=== PATIENT | female | born 1980 | race Caucasian/White ===

== ENCOUNTER → 2017-03-24 | Outpatient (CLI) | payer BC ==
[~2017-03-24] MED LIST: OXYC-57 PO; PRENTAB26 PO
--- NOTE | 2017-03-24 15:10 | MAMMOGRAPHY REPORT ---
BILATERAL DIGITAL DIAGNOSTIC MAMMOGRAM TOMOSYNTHESIS WITH CAD AND TARGETED LEFT ULTRASOUND: 03/24/2017 CLINICAL HISTORY: The patient reports left axillary pain for approximately one month, which has since resolved. She denies any palpable lumps or other complaints. Her mother was diagnosed with breast cancer at age 37. TECHNIQUE: Breast tomosynthesis in addition to standard 2D mammography was performed. Current study was also evaluated with a Computer Aided Detection (CAD) system. Bilateral CC and MLO 2-D and tomosy nthesis images were obtained. COMPARISON: No prior exams were available for comparison. BREAST COMPOSITION: The tissue of both breasts is heterogeneously dense, which may obscure small mas ses. FINDINGS: There are no suspicious masses, calcifications, or areas of architectural distortion noted in either breast mammographically. Targeted ultrasound was performed of the area of prior left axillary pain pointed out by the patient. Sonographically normal tissue is seen in this region, without evidence of a mass or other suspiciou s sonographic abnormality. Morphologically normal left axillary lymph nodes are seen, without eviden ce of adenopathy. IMPRESSION: ACR BI-RADS CATEGORY 2: BENIGN, TARGETED ULTRASOUND ACR BI-RADS CATEGORY 2: BENIGN No suspicious mammographic or sonographic abnormality in the region of prior left axillary pain which has now resolved. There is no mammographic or targeted sonographic evidence of malignancy. Recomme nd clinical follow-up for left axillary pain, and recommend routine bilateral screening mammograms in one year given that her mother was diagnosed with breast cancer at age 37. The patient has been verbally notified of the results. Approximately 10% of breast cancers are not detected with mammography. A negative mammographic report should not delay biopsy if a clinically suggestive mass is present. Caroline Slaughter M.D. ah/:03/24/2017 10:06:16 Senior Medical Billing Specialist: Lauren OG(Cory)(M), [facility] letter sent: Normal 1/2 BI-RADS Code: ACR BI-RADS Category 2: Benign Ultrasound BI-RADS: ACR BI-RADS Category 2: Benign
== END | disposition home or self-care (01) ==
LOC: C.MAMM 09:39
PROVIDERS: ATTEND Family Medicine
DX: R92.8 Other abnormal and inconclusive findings on diagnostic imaging of breast (principal); M79.622 Pain in left upper arm